=== PATIENT | female | born 1960 | race Caucasian/White ===

== ENCOUNTER 2024-01-30 10:38 | Outpatient (RCR) | payer MEDICARE, OTHER, SELFPAY | END 2024-05-29 23:59 | disposition home or self-care (01) | PROVIDERS: Visit Provider Orthopaedic Surgery | DX: M16.11 Unilateral primary osteoarthritis, right hip (principal); M25.551 Pain in right hip; Z74.09 Other reduced mobility; R26.9 Unspecified abnormalities of gait and mobility; M62.81 Muscle weakness (generalized); Z51.89 Encounter for other specified aftercare | CPT/HCPCS: 97110; 97161 ==

== ENCOUNTER 2024-02-09 06:03 | Day surgery (SDC) | payer MEDICARE, OTHER, SELFPAY ==
[2024-02-09] VITALS (25 sets, daily range): BP systolic 91–138; BP diastolic 43–93; PULSE 47–102; RESP 12–18; TEMP 35.9–36.6; O2SAT 94–100; BMI 27.6
[2024-02-09] MEDS: SODIUM CHLORIDE 0.9 % (FLUSH) 10 ML SYRINGE IVF (06:40)
[2024-02-09] MEDS: LACTATED RINGERS 1000 ML 1,000 ML 100 ML IV ×2 (06:40→09:15)
[2024-02-09] MEDS: ACETAMINOPHEN 500 MG TABLET 1000 MG PO (06:40)
[2024-02-09] MEDS: CELECOXIB 200 MG CAPSULE PO (06:40)
[2024-02-09] MEDS: MIDAZOLAM HCL 1 MG/ML inj IVP (07:20)
[2024-02-09] MEDS: fentaNYL 100 MCG/2 ML inj IVP (07:20)
--- NOTE | 2024-02-09 07:34 | SUR.PREOP ---
TIME?OUT:?73 PT/John JONES RN/Patsy EDOUARD MDA?VERIFICATION?OF?SURGICAL?SITE,?PROCEDURE,?AND?CONSENT OBTAINED?PRIOR?TO?INVASIVE?PROCEDURE.
--- NOTE | 2024-02-09 07:45 | CRLHL7_ITS ---
For Patients: As a result of the Century Cures Act, medical imaging exams and procedure reports are released immediately into your electronic medical record. You may view this report before your referring provider. If you have questions, please contact your health care provider. INDICATION: Right total hip arthroplasty. TECHNIQUE: Intraoperative C-arm fluoroscopy. IMPRESSION: Intraoperative C-arm fluoroscopy was provided. Fluoroscopy time 84.8 seconds. 1 image was captured. Dictated by Eliecer Momin MD @ 02/12/2024 11:34:50 PM (Electronically Signed)
[2024-02-09] MEDS: TRANEXAMIC ACID 100 MG/ML INJ 1000 MG IV (07:50)
[2024-02-09] MEDS: CEFAZOLIN 2 GM INJ IVP (07:55)
--- NOTE | 2024-02-09 09:17 | XR_ITS ---
Patient: STERLING PORTILLO Facility:?[facility] Patient ID:?[id number] Site Patient ID:?[id number]. Site :?[id number] Study:?XRay-Hip Right Post op-02/09/2024 1:14:35 PM Ordering Physician:Moiz Stafford Final Report: Indication: Status post right arthroplasty. Technique: AP pelvis in cross-table view of the right hip joint. Comparison: None Findings: Status post total right hip arthroplasty with intact hardware. Ppup-vy-[id number] left hip joint osteoarthritis. No acute fracture or dislocation. Soft tissue emphysema in the right upper thigh likely related to recent surgery. Impression: As above. Dictated by Shen Sullivan MD @ 02/13/2024 7:36:39 PM Signed by:?Shen Sullivan MD @02/13/2024 7:36:39 PM (Electronic Signature)
--- NOTE | 2024-02-09 09:18 | PM.ORPRC ---
Procedure Note Date of procedure: 02/09/24 Procedure: PREOPERATIVE DIAGNOSIS: Right hip osteoarthritis POSTOPERATIVE DIAGNOSIS: Right hip osteoarthritis NAME OF OPERATION: Right total hip arthroplasty SURGEON: Rivera Perez MD LABEL REWINDER: Rose Johnson PA-C, Zeeshan Stevenson PA-C IMPLANTS: 1. [employer] [place] # 52 sector ingrowth cup 2. 36 x 52 +4 neutral polyethylene 3. Actis # 7 standard collared ingrowth stem 4. 36 + 1.5 ceramic femoral head ANESTHESIA: General ESTIMATED BLOOD LOSS: 600 cc COMPLICATIONS: None SPECIMENS: None DRAINS: None PREOPERATIVE ANTIBIOTICS: Ancef 2 grams INDICATIONS: The patient is a 63-year-old with a longstanding history of severe, unrelenting right hip pain secondary to end-stage right hip osteoarthritis. Despite appropriate nonoperative management, including activity modification, use of an assist device, anti-inflammatories, qnwf-xcr-wyugjtb pain medication, physical therapy and injections, they continue to have pain and disability. Operative intervention was offered. The risks, benefits and expected outcomes were discussed in detail. These included but were not limited to: Infection, bleeding, injury to blood vessel or nerve, venous thromboembolism. All questions were answered to their satisfaction. Use of an periodicals library assistant was necessary throughout the case for patient positioning and safety, soft tissue retraction and closure. PROCEDURE: The patient was placed supine on the [place] table. General anesthesia was administered. The periodicals library assistant made sure the patient was properly positioned. The right hip was prepped and draped in the usual sterile fashion. The image intensifier was brought in for a perfect AP pelvis and a perfect double tear drop AP view of each hip which were used for intraoperative templating with our fluoroscopic guide. An oblique incision was made 3 cm distal and 3 cm lateral to the anterior superior iliac spine. The periodicals library assistant retracted the soft tissues to protect them. Subcutaneous dissection was taken with electrocautery to the superficial fascia. The fascia was divided in line with the incision. Blunt dissection was carried medially to the tensor fascia ernie and sartorius interval. Deep dissection was carried with electrocautery. The circumflex vessels were cauterized and divided. The capsule was exposed and then divided in a T-fashion, tagged with #1 Ethibond sutures. Retractors were placed in the joint, held by the periodicals library assistant. The corkscrew was placed in the femoral head. The neck cut was made in the subcapital region. We made a second neck cut more distal. The napkin ring of bone was removed. The femoral head was removed intact. Acetabular retractors were placed, held by the periodicals library assistant. The labrum was sharply debrided. The capsule was released. The 43 mm reamer was used to the true medial wall. We then enlarged in 2 mm increments using the image intensifier for our reamer placement. We impacted the cup which had excellent purchase. We placed the polyethylene. Attention was then turned to the proximal femur. The limb was placed in 140 degrees of external rotation, maximum extension and adduction. A significant amount of time was spent releasing the capsule to allow us to deliver the femur into the wound and complete the femoral side safely. Retractors were held by the periodicals library assistant throughout the femoral preparation. The kickboxing instructor and canal finder were used. Broaches were used to a stable size. The calcar reamer was used. Trial components were placed. The hip was reduced and was found to be stable with appropriate soft tissue tension. Length and offset had been nicely restored using the image intensifier and our fluoroscopic guide. Trial components were removed. The stem was impacted. We placed the femoral head. Again, the hip was reduced and was found to be stable with appropriate soft tissue tension. Length and offset had been nicely restored. The periodicals library assistant did a three minute dilute Betadine solution soak. The periodicals library assistant irrigated the wound with 3 liters of normal saline via pulse lavage. The periodicals library assistant repaired the anterior capsule with a #1 Vicryl and our previously placed Ethibond sutures. The periodicals library assistant closed the fascia over the tensor fascia ernie with a #1 PDO Stratafix, subcutaneous tissues with 2-0 Vicryl, skin with a running 3-0 Stratafix and glue. A dry dressing was applied by the periodicals library assistant. Sponge and needle counts were correct x 2. The patient tolerated the procedure well; there were no apparent complications. They were awakened and extubated in the operating room, sent to the Post-Anesthesia Care Unit in satisfactory condition. PLAN: 1. The patient will be mobilized with physical therapy, weight-bearing as tolerates 2. Xarelto x 5 days then aspirin x 30 days will be used for DVT prophylaxis 3. The patient will be discharged once medically appropriate
--- NOTE | 2024-02-09 09:52 | P.NB_ITS ---
Nerve Block Nerve Block Time Seen by Provider: 07:26 Date Seen: 02/09/24 Type of block requested by surgeon for post-operative analgesia: FERNANDA/LFCN Side: right Time out performed: Yes Verification of patient name: Yes Verification of date of : Yes Site marking: site marked Name of person performing procedure: Steffen Continuous monitoring Was continuous monitoring of O2 sat, B/P, court recording monitor, recorded every 15 minutes?: Yes Procedure Checklist: sterile prep, needles and gloves Ultrasound guided. Images saved: Yes Medications given in 5ml increments after negative aspiration: Ropivicaine %: 0.5 mL: 30 Needle gauge: 20 Decadron (mg): 10 Precedex (mcg): 25 Patient tolerated procedure well: Yes Additional comments: Needle noted below psoas tendon needle noted adjacent to LFCN Block Charges Block Charge (with Pro Fee): Other Periph Nerve Block Use of Ultrasound Machine for Block: Yes- US Guidance/pain block
--- NOTE | 2024-02-09 09:52 | W.ANESCHARGE ---
Anesthesia Charges Start Date/Time Anesthesia Start Date: 02/09/24 Anesthesia Start Time: 07:39 Stop Date/Time Anesthesia Stop Date: 02/09/24 Anesthesia Stop Time: 10:10
--- NOTE | 2024-02-09 10:17 | W.ANESCHARGE ---
Anesthesia Charges Start Date/Time Anesthesia Start Date: 02/09/24 Anesthesia Start Time: 07:39 Stop Date/Time Anesthesia Stop Date: 02/09/24 Anesthesia Stop Time: 10:10
[2024-02-09] MEDS: fentaNYL 100 MCG/2 ML inj 50 MCG IVP ×2 (10:34→10:44)
--- NOTE | 2024-02-09 11:04 | SUR.PHASEI ---
patient met discharge criteria per anesthesia
[2024-02-09] MEDS: METOCLOPRAMIDE HCL 5 MG/ML INJ 10 MG IVP (11:05)
[2024-02-09] MEDS: LACTATED RINGERS 1000 ML 1,000 ML 35 ML IV ×2 (11:51→13:26)
[2024-02-09] MEDS: OXYCODONE 5 MG TABLET PO (12:40)
[2024-02-09] MEDS: ONDANSETRON 2 MG/ML inj 4 MG IVP (13:27)
== END 2024-02-09 15:07 | disposition home or self-care (01) ==
LOC: OR 06:06
PROVIDERS: Visit Provider Orthopaedic Surgery
PROC: (CPT 27130; principal; 2024-02-09 07:45)
DX: M16.11 Unilateral primary osteoarthritis, right hip (principal); G89.18 Other acute postprocedural pain
CPT/HCPCS: 27130; 01214; 36415; 64450; 73501; 76942; 86850; 86900; 86901; 97110; 97116; 97161; 97165; 97535; A9270; C1776; J0330; J0690; J1100; J1170; J2250; J2371; J2405; J2704; J2710; J2765; J2795; J3010; J3475; J3490; J7120

== ENCOUNTER 2024-03-27 09:54 | Outpatient (CLI) | payer MEDICARE, OTHER, SELFPAY ==
--- NOTE | 2024-03-27 10:15 | MR_ITS ---
[facility] [address] [facility] [address] Phone:?[phone] Fax:?[phone] Referring Physician Information: Rivera Perez M.D. [address] [place] [id number] Phone:?[phone] Fax:?[phone] Patient:Sudarshan Witt LauraO.B:?1960 Sex:?Female Phone:?[phone] [facility] MRN:?[id number] Exam Date:?03/27/2024 EXAM: MRI EXAMINATION OF THE RIGHT SHOULDER CLINICAL INFORMATION: Right shoulder pain. No specific injury. No history of surgery to this area. Suspect rotator cuff tear. TECHNICAL INFORMATION: Coronal STIR as well as axial, sagittal and coronal PD and T2-weighted images acquired. No prior studies for comparison. INTERPRETATION: Bones: There is no Hill-Sachs impaction deformity. No other occult fracture or osseous contusion. No other bone marrow edema pattern. Rotator Cuff: Series 8 image 7 as well as series 4 images 8 through 10 demonstrate a 1.4 cm AP full-thickness tear involving the mid to anterior supraspinatus tendon insertion. Torn tendon fibers remain situated just lateral to the mid humeral head level. There is no evidence for muscle belly atrophy. Series 4 images 15 and 16 as well as series 8 image 6 demonstrate a 5 mm shallow undersurface partial-thickness tear involving the infraspinatus tendon insertion with mild tendinopathy. The teres minor tendon is intact. There is a mild appearance of superior subscapularis tendinopathy. The bony coracohumeral interval is measuring 8 to 9 mm. There is a moderate appearance of subcoracoid bursitis. No appreciable rotator cuff muscle belly atrophy. Coracoacromial arch: There is no discrete subacromial osseous spur. The bony acromiohumeral interval is measuring 5 to 6 mm. There is no thickening identified of the coracoacromial ligament. Acromioclavicular joint: Moderate to marked AC joint DJD. Undersurface changes minimally deform the underlying supraspinatus. Biceps tendon: The long head biceps tendon is intact and nondisplaced from the bicipital groove. There is a mild to moderate appearance of intra-articular tendinopathy. Glenohumeral joint and labrum: There is a moderate glenohumeral joint effusion. No discrete loose body within the joint. Osteochondral surfaces appear relatively preserved. There is tearing identified involving the superior aspect of the labrum. No other definite evidence for labral tear. No discrete paralabral cyst is identified. CONCLUSION: 1. A moderate-sized full-thickness tear involves the mid to anterior supraspinatus tendon insertion. Torn tendon fibers remain situated lateral to the mid humeral head level. No muscle belly atrophy. 2. There is a small and shallow undersurface partial-thickness tear of the infraspinatus tendon insertion. 3. Mild subscapularis tendinopathy. No abnormal narrowing of the coracohumeral interval, but there is a moderate appearance of subcoracoid bursitis. 4. Moderate to marked AC joint DJD with mild to moderate narrowing of the acromiohumeral interval. 5. Mild to moderate articular long head biceps tendinopathy. 6. There is tearing identified through the superior aspect of the labrum. There is a moderate glenohumeral joint effusion. KES Electronically signed on 03/27/2024 3:18:00 PM by Tarik Ibarra M.D.
== END 2024-03-27 09:55 | disposition home or self-care (01) ==
LOC: MRI 09:55
PROVIDERS: Visit Provider Orthopaedic Surgery
DX: M25.511 Pain in right shoulder (principal); M75.101 Unspecified rotator cuff tear or rupture of right shoulder, not specified as traumatic; M19.011 Primary osteoarthritis, right shoulder; M25.411 Effusion, right shoulder
CPT/HCPCS: 73221

== ENCOUNTER 2024-05-24 06:46 | Day surgery (SDC) | payer MEDICARE, SELFPAY ==
[2024-05-24] VITALS (20 sets, daily range): BP systolic 87–134; BP diastolic 47–77; PULSE 53–84; RESP 16; TEMP 36.3–36.6; O2SAT 93–100; BMI 26.6
[2024-05-24] MEDS: CELECOXIB 200 MG CAPSULE PO (08:07)
[2024-05-24] MEDS: ACETAMINOPHEN 500 MG TABLET 1000 MG PO (08:07)
[2024-05-24] MEDS: SODIUM CHLORIDE 0.9 % (FLUSH) 10 ML SYRINGE IVF (08:23)
[2024-05-24] MEDS: LACTATED RINGERS 1000 ML 1,000 ML 100 ML IV ×2 (08:23→12:33)
--- NOTE | 2024-05-24 08:59 | SUR.PREOP ---
TIME?OUT:?0859 PT/RN/MDA?VERIFICATION?OF?SURGICAL?SITE,?PROCEDURE,?AND?CONSENT OBTAINED?PRIOR?TO?INVASIVE?PROCEDURE.
[2024-05-24] MEDS: MIDAZOLAM HCL 1 MG/ML inj IVP (09:01)
[2024-05-24] MEDS: fentaNYL 100 MCG/2 ML inj IVP (09:01)
--- NOTE | 2024-05-24 09:29 | W.PM.NB ---
Nerve Block Nerve Block Time Seen by Provider: 09:00 Date Seen: 05/24/24 Type of block requested by surgeon for post-operative analgesia: supraclavicular Side: right Time out performed: Yes Verification of patient name: Yes Verification of date of : Yes Site marking: site marked Name of person performing procedure: Steffen Continuous monitoring Was continuous monitoring of O2 sat, B/P, deaf and hard of hearing teacher, recorded every 15 minutes?: Yes Procedure Checklist: sterile prep, needles and gloves Ultrasound guided. Images saved: Yes Medications given in 5ml increments after negative aspiration: Ropivicaine %: 0.5 mL: 20 Needle gauge: 22 Decadron (mg): 10 Precedex (mcg): 25 Patient tolerated procedure well: Yes Block Charges Block Charge (with Pro Fee): Brachial Plexus Use of Ultrasound Machine for Block: Yes- US Guidance/pain block
--- NOTE | 2024-05-24 09:36 | W.ANESCHARGE ---
Anesthesia Charges Start Date/Time Anesthesia Start Date: 05/24/24 Anesthesia Start Time: 09:19 Stop Date/Time Anesthesia Stop Date: 05/24/24 Anesthesia Stop Time: 11:25
[2024-05-24] MEDS: CEFAZOLIN 2 GM INJ IVP (09:37)
[2024-05-24] MEDS: EPINEPHrine 1 MG in SODIUM CHLORIDE IRRIG SOLUTION 3,000 ML 3001 MG IRRIGATION ×4 (09:50→10:17)
--- NOTE | 2024-05-24 09:59 | SUR.OPER ---
PATIENT QUESTIONS ANSWERED SATISFACTORILY PREOPERATIVELY. PATIENT BROUGHT TO OR #3 PER CART FOLLOWING THE BLOCK. Patient positioned supine on OR #3 bed for the intubation.? Perioperative team wrapped the left arm in a neutral position on the pt. abdomen with the drawsheet. Right arm elevated on an IV pole in a padded strap. Final approval of positioning by surgeon. CONTINUOUS IRRIGATION OF THE LEFT SHOULDER WITH MIXTURE OF 3000 NACL AND 1mg OF EPINEPHRINE DURING PROCEDURE.
--- NOTE | 2024-05-24 11:00 | PM.ORPRC ---
Procedure Note Date of procedure: 05/24/24 Procedure: PREOPERATIVE DIAGNOSIS: Right shoulder rotator cuff tear, AC joint arthrosis, labral tearing POSTOPERATIVE DIAGNOSIS: Right shoulder rotator cuff tear, AC joint arthrosis, labral tearing NAME OF OPERATION: Right shoulder arthroscopic limited glenohumeral joint debridement, subacromial decompression, distal clavicle excision, mini open rotator cuff repair SURGEON: Rivera Perez MD BARIATRIC PHYSICIAN: Lisa Johnson PA-C ANESTHESIA: Supraclavicular block plus general endotracheal ESTIMATED BLOOD LOSS: 5 mL COMPLICATIONS: None SPECIMENS: None DRAINS: None PREOPERATIVE ANTIBIOTICS: Ancef 1 g INDICATIONS: The patient is a 64-year-old with a history of right shoulder pain secondary to the above diagnoses. Despite appropriate non operative management, they continue to have symptoms. Operative intervention was recommended. The risks, benefits and expected outcomes were discussed in detail. These included but were not limited to: Infection, bleeding, injury to blood vessel or nerve, venous thromboembolism. All questions were answered to their satisfaction. PROCEDURE: A supraclavicular block was placed by Anesthesia. General anesthesia was administered. The patient was placed in the high beach chair position. The right shoulder was prepped and draped in the usual sterile fashion. The glenohumeral joint was infiltrated with 20 mL of normal saline with epinephrine. The posterior portal was established, the arthroscope was introduced. The anterior portal was established, Diagnostic arthroscopy was performed with findings as follows: The biceps and biceps anchor are intact. The anterior, posterior and superior labrum show age-appropriate degenerative tearing. Articular surfaces on the humeral head and glenoid are normal. There are no loose bodies. There is a full-thickness tear of the supraspinatus. There is longitudinal splitting of the insertion of the subscap. The labrum was debrided with the shaver. The arthroscope was placed in the subacromial space, the lateral portal was established. The Arthrex Refugio was used to dissect the acromion free. The CA ligament was recessed off the anterior acromion, the AC joint was exposed. The acromioplasty was performed with the bur in the posterior portal. The bur was then placed in the lateral portal and the lateral and anterior aspect of the acromion were resected. The undersurface of the distal clavicle was resected through the lateral portal. Finally, the bur was placed in the anterior portal and the remainder of the distal clavicle was resected for a total of 10 mm. An accessory anterolateral portal was placed. The subacromial/subdeltoid bursa was aggressively debrided. There is a full-thickness tear of the supraspinatus, into the infraspinatus. Arthroscopic instruments were removed. The accessory anterolateral portal was extended proximally and distally, subcutaneous dissection was taken with electrocautery to the deltoid. The deltoid was divided in line with its fibers. The static retractor was placed. The subacromial/subdeltoid bursa was debrided with the James scissors. The few remaining fibers of the infraspinatus were released with the scalpel. Likewise, the insertion of the subscap was released off the lesser tuberosity. The greater and lesser tuberosities were debrided to punctate bleeding bone using the arthroscopic bur. An Arthrex BioComposite corkscrew anchor was placed over the superolateral aspect of the lesser tuberosity, just medial to the biceps. All 4 limbs of the suture were passed through the subscap using the scorpion. Two Arthrex BioComposite SwiveLock anchors were placed just off the greater tuberosity articular surface. Both limbs of the FiberWire and fiber tape were passed using the scorpion. A fiber link was placed in the leading edge of the rotator cuff x2. We tied the 2 central FiberWire sutures over the rotator cuff. We then proceeded with a lateral row of SwiveLock anchors x 2 crossing the FiberTape and incorporating the FiberWire and fiber link into each lateral row anchor. We passed the sutures on the eyelets of the lateral row anchors through the leading edge of the rotator cuff, resulting in a simple suture. Finally, we tied the sutures over the front of the subscap. This provides an anatomic, watertight repair of the rotator cuff. There is no tension on the repair with the shoulder at 0? abduction. The wound was irrigated with normal saline off the pump. The deltoid was repaired with an 0 Vicryl in an interrupted rsdnly-os-xardl fashion. Subcutaneous tissues were closed with a 3-0 Vicryl. Skin was closed with a 3-0 Monocryl in a subcuticular fashion. A dry dressing and sling were applied. Sponge and needle counts were correct x2. The patient tolerated the procedure well. There were no apparent complications. They were carefully transferred to the hospital bed and taken to the postanesthesia care unit in satisfactory condition. PLAN: The patient will be discharged to home. No active range of motion of the shoulder will be allowed for 6 weeks postoperatively. They can work on active range of motion of the elbow, wrist and fingers. They will follow up in the office next week for a wound check and an AP and transscapular Y-view of the shoulder prior to being seen.
--- NOTE | 2024-05-24 11:39 | W.ANESCHARGE ---
Anesthesia Charges Start Date/Time Anesthesia Start Date: 05/24/24 Anesthesia Start Time: 09:19 Stop Date/Time Anesthesia Stop Date: 05/24/24 Anesthesia Stop Time: 11:25
== END 2024-05-24 14:06 | disposition home or self-care (01) ==
LOC: OR 06:48
PROVIDERS: Visit Provider Orthopaedic Surgery
PROC: (CPT 23412; principal; 2024-05-24 09:15)
DX: M75.101 Unspecified rotator cuff tear or rupture of right shoulder, not specified as traumatic (principal); S43.431A Superior glenoid labrum lesion of right shoulder, initial encounter; M19.011 Primary osteoarthritis, right shoulder; G89.18 Other acute postprocedural pain
CPT/HCPCS: 29826; 29824; 29822; 23412; 01630; 64415; 76942; A9270; C1713; J0171; J0330; J0690; J1100; J2250; J2371; J2405; J2704; J2795; J3010; J3490; J7120; L3670